=== PATIENT | female | born 1985 | race Caucasian/White ===

== ENCOUNTER 2016-12-23 19:49 | Emergency (ER) | payer BC ==
--- NOTE | 2016-12-23 20:54 | UC ---
Respiratory Complaint HPI - HPI Summary HPI Summary: Scratchy throat, nasal congestion, now cough and painful resp/coughing since yesterday. Had temp yesterday of 100.8F. "Three people at work have had this illness and after 10 days they all wound up on a [id number]." Denies significant respiratory history or hospitalizations for breathing problems/infection. - History of Current Complaint Chief Complaint: UCRespiratory Stated Complaint: ACHES,ST,COUGH Time Seen by Provider: 12/23/16 20:30 Hx Obtained From: Patient Hx Last Menstrual Period: 12/16/16 ?: No Onset/Duration: Gradual Onset, Lasting Days Timing: Constant Severity Initially: Mild Severity Currently: Moderate Character: Cough: Productive Aggravating Factors: Exertion Alleviating Factors: Upright Position Associated Signs And Symptoms: Positive: Fever, Pleuritic Chest Pain, URI, Nasal Congestion, Sinus Discomfort. 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 AGE 18- CRYO SURGERY- CERVIX- OFFICE - Family History Known Family History: Negative: Respiratory Disease - Social History Occupation: Employed Full-time Alcohol Use: Weekly Substance Use Type: None Smoking Status (MU): Light Every Day Tobacco Smoker Amount Used/How Often: 1/2 PPD X 15 YEARS Have You Smoked in the Last Year: Yes Review of Systems Constitutional: Fever Skin: Negative Eyes: Negative ENT: Sore Throat, Nasal Discharge Respiratory: Cough Cardiovascular: Negative Gastrointestinal: Negative Genitourinary: Negative Motor: Negative Neurovascular: Negative Musculoskeletal: Negative Neurological: Negative Psychological: Negative All Other Systems Reviewed And Are Negative: Yes Physical Exam Triage Information Reviewed: Yes Appearance: Well-Nourished, Pain Distress - mild Vital Signs: Initial Vital Signs Temp 99.2 F 12/23/16 20:02 Pulse 134 12/23/16 20:02 Resp 18 12/23/16 20:02 Pulse Ox 99 12/23/16 20:02 Vital Signs Reviewed: Yes Eye Exam: Normal Eyes: Positive: Conjunctiva Clear ENT: Positive: Hearing grossly normal, Pharynx normal, Nasal congestion, Nasal drainage, TMs normal. Negative: Tonsillar swelling, Tonsillar exudate Dental Exam: Normal Neck exam: Normal Neck: Positive: Supple, Nontender, No Lymphadenopathy Respiratory Exam: Other - occ harsh cough Respiratory: Positive: Lungs clear, No respiratory distress, No accessory muscle use Cardiovascular: Positive: No Murmur, Tachycardia Musculoskeletal Exam: Normal Neurological Exam: Normal Neurological: Positive: Alert Psychological Exam: Normal Skin Exam: Normal UC Diagnostic Evaluation - Laboratory O2 Sat by Pulse Oximetry: 99 Respiratory Course/Dx - Course Course Of Treatment: Pt is desiring an antibiotic because of exposure to coworkers, also feeling she is unable to be this sick for a long period of time and would like a quick resolution. Discussed the very high likelihood of this being viral, explained that her symptoms are quite typical for viral infections and that an antibiotic is more likely to hurt her than help her at this point. Encouraged her to return if new fever, trouble breathing, or sudden worsening. Provided work note. - Differential Dx/Diagnosis Provider Diagnoses: Upper respiratory infection, likely viral Discharge - Discharge Plan Condition: Stable Disposition: HOME Prescriptions: Albuterol HFA INHALER* [Ventolin HFA Inhaler*] 1 - 2 puff INH Q4H PRN #1 mdi PRN Reason: wheeze, cough Patient Education Materials: Upper Respiratory Infection (ED) Forms: *Work Release Referrals: No Primary Care Phys,NOPCP [Primary Care Provider] - Additional Instructions: We used to think antibiotics were necessary to treat bronchitis, but studies have shown that respiratory viruses cause the disease in the vast majority of cases. Like head colds, most cases of bronchitis get better without antibiotics. We may prescribe antibiotics if we believe bacteria are damaging your airways, or if there's high risk the bronchitis will worsen into pneumonia (such as for individuals with emphysema or other lung disease). Increase your fluid intake. A cool mist humidifier may make your lungs more comfortable. An expectorant (cough medicine that loosens phlegm) can help. Recovery from bronchitis can be somewhat slow, but you should not have any significant worsening or new fevers. As long as you can breathe easily and you continue to have steady improvement, it is not important how many days it takes you to get better. Call or return if you develop increasing fever, shortness of breath, chest pain , bloody sputum, or otherwise worsen. If you have not improved at all after several days, contact your primary care physician or return here.
== END 2016-12-23 20:54 | disposition home or self-care (01) ==
LOC: UCEAST 19:49
DX: J06.9 Acute upper respiratory infection, unspecified (principal); I10 Essential (primary) hypertension; F41.9 Anxiety disorder, unspecified
CPT/HCPCS: 99212; G0463

== ENCOUNTER 2017-10-25 18:33 | Emergency (ER) | payer SELFPAY ==
[2017-10-25] MEDS ORDERED: Methocarbamol TAB* 500 MG PO ONE (19:35)
[2017-10-25] MEDS ORDERED: Dexamethasone TAB* 4 MG PO ONE (19:36)
[2017-10-25] MEDS ORDERED: Dexamethasone IV* 4 MG/ML 1 ML (4 MG) IV SLOW PU ONE (19:45)
[2017-10-25 20:10] LABS: ABS Basophils 0.1 10^3/ul (0-0.2); ABS Eosinophils 0.4 10^3/ul (0-0.6); ABS Lymphocytes 3.4 10^3/ul (1.0-4.8); ABS Monocytes 0.8 10^3/ul (0-0.8); ABS Neutrophils 4.8 10^3/ul (1.5-7.7); ABS Nucleated RBC 0 10^3/ul; Hematocrit 43 % (35-47); Hemoglobin 14.3 g/dl (12.0-16.0); Lymphocyte % 35.5 % (25-47); Mean Corpuscular HGB Conc 34 g/dl (31-36); Mean Corpuscular Hemoglobin 28 pg (27-31); Mean Corpuscular Volume 83 fL (80-97); Mean Platelet Volume 6.7 um3 (7.4-10.4); Nucleated Red Blood Cells % 0.2; Platelet Count 384 10^3/ul (150-450); Red Blood Count 5.13 10^6/ul (4.0-5.4); Red Cell Distribution Width 13 % (10.5-15); White Blood Count 9.4 10^3/ul (3.5-10.8)
--- NOTE | 2017-10-25 20:55 | ED ---
Neck Pain - HPI Summary HPI Summary: 32-year-old female presents with neck pain for the past 2 weeks. 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 She states she did not have any pain after that. States since then she's been having left-sided neck pain that radiates to her head. She has a headache from the pain although does not have a history of headaches. She denies any numbness or tingling. She denies any change in vision or photophobia. She states everyday the pain gets worse. She has been taking ibuprofen initially and ibuprofen was working but it is not working anymoew. She has been using ice and heat with no improvement. She states the pain is sharp and almost tear like. She denies any change in vision. She denies any weakness. She denies any family history of aneurysms. She has no medical conditions. 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 AGE 18- CRYO SURGERY- CERVIX- OFFICE Hx Anesthesia Reactions: Yes - N/V Infectious Disease History: No Infectious Disease History: Denies: Hx Hepatitis, Hx Human Immunodeficiency Virus (HIV), Traveled Outside the [place] in Last 30 Days - Family History Known Family History: Negative: Respiratory Disease - Social History Alcohol Use: Occasionally Substance Use Type: Reports: None Smoking Status (MU): Light Every Day Tobacco Smoker Amount Used/How Often: 1/2 PPD X 15 YEARS Have You Smoked in the Last Year: Yes Review of Systems Negative: Fever Negative: Chest Pain Negative: Shortness Of Breath Positive: Myalgia - neck pain Positive: Headache All Other Systems Reviewed And Are Negative: Yes Physical Exam Triage Information Reviewed: Yes Vital Signs On Initial Exam: Initial Vitals Temp Pulse Resp BP Pulse Ox 98.3 F 112 19 172/112 99 10/25/17 18:46 10/25/17 18:46 10/25/17 18:46 10/25/17 18:46 10/25/17 18:46 Vital Signs Reviewed: Yes Appearance: Positive: Well-Appearing Skin: Positive: Warm, Dry Head/Face: Positive: Normal Head/Face Inspection Eyes: Positive: Normal, EOMI, QUYEN, Conjunctiva Clear ENT: Positive: Normal ENT inspection, Pharynx normal, TMs normal Respiratory/Lung Sounds: Positive: Clear to Auscultation, Breath Sounds Present Cardiovascular: Positive: Normal, RRR Musculoskeletal: Positive: Limited @ - neck due to pain, Other - tenderness left side of neck behind left ear Neurological: Positive: Alert, Oriented to Person Place, Time, CN Intact II-III , Reflexes Intact - biceps Psychiatric: Positive: Normal Diagnostics - Vital Signs Vital Signs Temp Pulse Resp BP Pulse Ox 10/25/17 18:46 98.3 F 112 19 172/112 99 - Laboratory Lab Results: Lab Results 10/25/17 10/25/17 Range/Units 19:55 19:55 WBC 9.4 (3.5-10.8) 10^3/ul RBC 5.13 (4.0-5.4) 10^6/ul Hgb 14.3 (12.0-16.0) g/dl Hct 43 (35-47) % MCV 83 (80-97) fL MCH 28 (27-31) pg MCHC 34 (31-36) g/dl RDW 13 (10.5-15) % Plt Count 384 (150-450) 10^3/ul MPV 6.7 L (7.4-10.4) um3 Neut % (Auto) 50.7 (38-83) % Lymph % (Auto) 35.5 (25-47) % Gregory % (Auto) 8.7 H (0-7) % Eos % (Auto) 4.0 (0-6) % Baso % (Auto) 1.1 (0-2) % Absolute Neuts (auto) 4.8 (1.5-7.7) 10^3/ul Absolute Lymphs (auto) 3.4 (1.0-4.8) 10^3/ul Absolute Monos (auto) 0.8 (0-0.8) 10^3/ul Absolute Eos (auto) 0.4 (0-0.6) 10^3/ul Absolute Basos (auto) 0.1 (0-0.2) 10^3/ul Absolute Nucleated RBC 0 10^3/ul Nucleated RBC % 0.2 Sodium 138 (133-145) mmol/L Potassium 3.6 (3.5-5.0) mmol/L Chloride 103 (101-111) mmol/L Carbon Dioxide 27 (22-32) mmol/L Anion Gap 8 (2-11) mmol/L BUN 11 (6-24) mg/dL Creatinine 0.86 (0.51-0.95) mg/dL Est GFR ( Amer) 97.7 (>60) Est GFR (Non-Af Amer) 76.0 (>60) BUN/Creatinine Ratio 12.8 (8-20) Glucose 73 (70-100) mg/dL Calcium 9.5 (8.6-10.3) mg/dL Total Bilirubin 0.30 (0.2-1.0) mg/dL AST 27 (13-39) U/L ALT 34 (7-52) U/L Alkaline Phosphatase 63 (34-104) U/L Total Protein 7.5 (6.4-8.9) g/dL Albumin 4.2 (3.2-5.2) g/dL Globulin 3.3 (2-4) g/dL Albumin/Globulin Ratio 1.3 (1-3) Result Diagrams: 10/25/17 19:55 10/25/17 19:55 Lab Statement: Any lab studies that have been ordered have been reviewed, and results considered in the medical decision making process. - Radiology neck Radiology Interpretation Completed By: Radiologist - CT cta CT Interpretation: No Acute Changes CT Interpretation Completed By: Radiologist Neck Course/Dx - Course Course Of Treatment: 32-year-old female presents with neck pain for the past 2 weeks. 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 She states she did not have any pain after that. States since then she's been having left-sided neck pain that radiates to her head. She has a headache from the pain although does not have a history of headaches. She denies any numbness or tingling. She denies any change in vision or photophobia. She states everyday the pain gets worse. She has been taking ibuprofen initially and ibuprofen was working but it is not working anymoew. She has been using ice and heat with no improvement. She states the pain is sharp and almost tear like. She denies any change in vision. She denies any weakness. She denies any family history of aneurysms. She has no medical conditions. on exam tenderness left side of neck. no midline tenderness. neurovascular intact. will description and it getting worst will get CTA. CTA and neck xray normal. will prescribe muscle relaxer and steriod and have follow up with primary. will have follow up with primary about blood pressure. patient understand and agrees with plan. - Diagnoses Differential Dx/HQI/PQRI: Positive: Cervical Fracture, Sprain, Strain, Vertebral Artery Aneurysm Provider Diagnoses: Neck pain, Headache, Elevated blood pressure reading Discharge - Sign-Out/Discharge Documenting (check all that apply): Discharge - Discharge Plan Condition: Good Disposition: HOME Prescriptions: Methocarbamol TAB* [Robaxin 500 MG TAB*] 500 mg PO TID PRN #30 tab PRN Reason: Pain methylPREDNISolone [Medrol Dosepak 4 MG*] 4 mg PO .SEE ALE INSTRUCTION #1 packet Patient Education Materials: Methocarbamol (By mouth), Neck Pain (ED) Referrals: [facility] [place] [facility]ERR[facility] [Outside] Additional Instructions: Follow directions on package for Medrol pack Take muscle relaxers up to two tablets three times a day Use ibuprofen or Tylenol for pain every 6 hours ice/heat area, move as much as possible Follow up with primary within 5 days Return to ED if develop any new or worsening symptoms - Billing Disposition and Condition Condition: GOOD Disposition: HOME
[2017-10-25] MEDS ORDERED: Iohexol 350* (CONTRAST) 500 ML MDV IV ONE (20:59)
[2017-10-25] MEDS ORDERED: Lidocaine PATCH 5%* 1 PATCH TRANSDERM SCH (21:00)
--- NOTE | 2017-10-25 21:08 | RAD ---
Indication: LEFT side neck pain. Comparison: No relevant prior exams available on the [facility] [place] PACS for comparison. Technique: AP, open-mouth odontoid, and lateral views cervical spine. Report: Straightening relative to normal cervical lordosis without facet subluxation at any level. Negative for fracture. Preserved disc spaces. Unremarkable prevertebral soft tissue contours. IMPRESSION: Aside from straightening relative to normal cervical lordosis which may be positional the examination is normal.
--- NOTE | 2017-10-25 21:36 | RAD ---
INDICATION: LEFT side headache. Neck pain. Injury one week ago. COMPARISON: Cervical spine radiographs of the same date. TECHNIQUE: Prior to administration of IV contrast a routine noncontrast head CT was performed. Multidetector CT images were obtained from the aortic arch to the vertex of the head with 80 mL Omnipaque 350 IV contrast. Arterial phase of enhancement. Multiplanar reformation including maximum intensity projection. 3-D arterial volume rendering. Stenosis estimations based on denominator of distal arterial diameter. HEAD CT REPORT: The sulci, ventricles, and basal cisterns are normal for age. Melendez matter white matter differentiation is preserved without evidence for edema. No intra or extra axial hemorrhage, mass, or fluid collection detected. Unremarkable visualized orbital contents. Unremarkable calvarium and skull base. Unremarkable scalp. The visualized paranasal sinuses and mastoid air spaces are clear. IMPRESSION: Negative unenhanced head CT. NECK ANGIOGRAM REPORT: Artifact from contrast within the LEFT subclavian and brachiocephalic veins markedly limits assessment of the ostium of the branch vessels from the aortic arch and RIGHT brachiocephalic and proximal common carotid as well as the proximal subclavian and proximal vertebral arteries. No atherosclerotic plaque, occlusion, stenosis, or dissection of the carotid or vertebral arteries evident. NECK ANGIOGRAM IMPRESSION: Negative CT angiogram of the neck. HEAD ANGIOGRAM REPORT: Unremarkable patent intracranial internal carotid arteries as well as the M1 and M2 segments of the middle cerebral arteries and A1 and A2 segments of the anterior cerebral arteries. No definitive anterior communicating artery visualized. Unremarkable patent basilar artery and cerebellar artery origins. Patent posterior cerebral arteries are supplied primarily by the posterior circulation with normal variant hypoplastic posterior communicating arteries. No intracranial aneurysm or vascular malformation evident. Normal opacification of the dural venous sinuses. HEAD ANGIOGRAM IMPRESSION: Negative CT angiogram of the head. CPT II: CPT II Codes: 3100F
[2017-10-25] MEDS: Methocarbamol TAB* 500 MG PO ONE ×2 (22:13→22:14)
[2017-10-25 22:26] VITALS: BP 156/106
== END 2017-10-25 22:24 | disposition home or self-care (01) ==
LOC: ED 18:33
DX: M54.2 Cervicalgia (principal); R51 Headache; I10 Essential (primary) hypertension; F17.210 Nicotine dependence, cigarettes, uncomplicated
CPT/HCPCS: 36415; 70496; 70498; 72040; 80053; 85025; 96374; 99282; A9270-GY; J1100; Q9967

== ENCOUNTER 2017-10-29 11:29 | Emergency (ER) | payer OTHER ==
[2017-10-29 11:53] VITALS: BP 148/96
--- NOTE | 2017-10-29 12:18 | UC ---
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 Patient reports straining her neck during the restraint she sought emergency department care on 10/25/17 to continued pain and decreased range of motion in her neck she was discharged with Robaxin and Medrol Dosepak diagnosis cervical strain. Patient states symptoms have resolved she is just here following up as recommended by the emergency department. Patient is able to demonstrate full range of motion and no bony tenderness in her cervical spine - History of Current Complaint Hx Obtained From: Patient Hx Last Menstrual Period: 10/20/17 ?: No Timing: Constant Onset/Duration: Sudden Onset Severity: Mild Pain Intensity: 2 Pain Scale Used: 0-10 Numeric Location: Discrete At: Character: Stiff - resolved Aggravating Factors: Nothing Alleviating Factors: Nothing Associated Signs & Symptoms: Positive: Negative Related History: Occupational Injury <Maria Elena Akers - Last Filed: 10/29/17 13:33> <Candi Harmon - Last Filed: 10/30/17 20:53> - History of Current Complaint Chief Complaint: UCBackPain Stated Complaint: RECHECK NECK INJURY Time Seen by Provider: 10/29/17 12:12 - Allergies/Home Medications Allergies/Adverse Reactions: Allergies Allergy/AdvReac Type Severity Reaction Status Date / Time No Known Allergies Allergy Verified 10/29/17 11:53 PMH/Surg Hx/FS Hx/Imm Hx Previously Healthy: Yes Other History Of: Negative For: Anticoagulant Therapy - Surgical History Surgical History: None Surgery Procedure, Year, and Place: AGE 11- LAPAROSCOPIC ABDOMINAL SURGERY- FOR RUPTURED OVARIAN CYST- APPENDECTOMY. AGE 18- CRYO SURGERY- CERVIX- OFFICE; T& A 2014 - Family History Known Family History: Negative: Respiratory Disease - Social History Occupation: Employed Full-time Lives: With Family Alcohol Use: Occasionally Substance Use Type: None Smoking Status (MU): Heavy Every Day Tobacco Smoker Amount Used/How Often: 1ppd Have You Smoked in the Last Year: Yes Cessation Counseling: Patient Advised to Stop <Maria Elena Akers - Last Filed: 10/29/17 13:33> Review Of Systems Constitutional: Positive: Negative Skin: Positive: Negative Eyes: Positive: Negative ENT: Positive: Negative Respiratory: Positive: Negative Cardiovascular: Positive: Negative Gastrointestinal: Positive: Negative Genitourinary: Positive: Negative Musculoskeletal: Positive: Negative, Myalgia - minimal discomfort to palpation left side of neck near base of skull Neurological: Positive: Negative Psychological: Positive: Negative All Other Systems Reviewed And Are Negative: Yes <Maria Elena Akers - Last Filed: 10/29/17 13:33> Physical Exam Triage Information Reviewed: Yes Appearance: Well-Appearing, No Pain Distress, Well-Nourished Vital Signs: Initial Vital Signs Temp 98.5 F 10/29/17 11:48 Pulse 103 10/29/17 11:48 Resp 16 10/29/17 11:48 BP 148/96 10/29/17 11:48 Pulse Ox 98 10/29/17 11:48 Vital Signs Reviewed: Yes Eye Exam: Normal Eyes: Positive: Conjunctiva Clear ENT Exam: Normal ENT: Positive: Normal ENT inspection, Hearing grossly normal, Pharynx normal, TMs normal, Uvula midline. Negative: Trismus, Muffled voice, Hoarse voice, Dental tenderness, Sinus tenderness Dental Exam: Normal Neck exam: Normal Neck: Positive: Supple, No Lymphadenopathy, Tenderness @ - point tenderness as described Respiratory Exam: Normal Respiratory: Positive: Chest non-tender, Lungs clear, Normal breath sounds, No respiratory distress, No accessory muscle use Cardiovascular Exam: Normal Cardiovascular: Positive: RRR, No Murmur, Pulses Normal, Brisk Capillary Refill Musculoskeletal Exam: Normal Musculoskeletal: Positive: Strength Intact, ROM Intact, No Edema Neurological Exam: Normal Neurological: Positive: Alert, Muscle Tone Normal Psychological Exam: Normal Skin Exam: Normal <Maria Elena Akers - Last Filed: 10/29/17 13:33> Vital Signs: Initial Vital Signs Temp 98.5 F 10/29/17 11:48 Pulse 103 10/29/17 11:48 Resp 16 10/29/17 11:48 BP 148/96 10/29/17 11:48 Pulse Ox 98 10/29/17 11:48 <Candi Harmon - Last Filed: 10/30/17 20:53> Neck Pain Course/Dx - Course Course Of Treatment: Continue Medrol Dosepak as prescribed continue Robaxin when necessary physical therapy referral provided for patient should pain continue as well as follow-up for primary care. Patient feels she may recheck return to work I agree patient may return to work - Differential Dx/Diagnosis Provider Diagnoses: Resolving cervical muscle strain, nicotine dependence, elevated blood pressure without diagnosis of hypertension <Maria Elena Akers - Last Filed: 10/29/17 13:33> Discharge - Sign-Out/Discharge Documenting (check all that apply): Discharge - Billing Disposition and Condition Condition: STABLE Disposition: HOME <Maria Elena Akers - Last Filed: 10/29/17 13:33> - Billing Disposition and Condition Condition: STABLE Disposition: HOME <Candi Harmon - Last Filed: 10/30/17 20:53> - Discharge Plan Condition: Stable Disposition: HOME Patient Education Materials: Cervical Strain (ED), Acute Neck Pain (ED) Referrals: [facility] [place] [facility] [Outside] No Primary Care Phys,NOPCP [Primary Care Provider] - Additional Instructions: Finished Medrol Dosepak continued to use Robaxin when necessary. If pain worsens in any way or fail to completely resolve 100%, follow up with [facility], [facility] as they do except Workmen's Comp. There is also a physical therapy referral included if you need that for neck pain Attestation Statement User Type: Provider - I was available for consult. This patient was seen by the MARINA. The patient was not presented to, seen by, or examined by me. Jonoj <Candi Harmon - Last Filed: 10/30/17 20:53>
== END 2017-10-29 13:00 | disposition home or self-care (01) ==
LOC: UCEAST 11:29
DX: S16.1XXD Strain of muscle, fascia and tendon at neck level, subsequent encounter (principal); X58.XXXD Exposure to other specified factors, subsequent encounter; R03.0 Elevated blood-pressure reading, without diagnosis of hypertension; F17.210 Nicotine dependence, cigarettes, uncomplicated
CPT/HCPCS: 99211; G0463

== ENCOUNTER 2017-10-29 11:38 | Emergency (ER) | payer BC ==
[2017-10-29 11:56] VITALS: BP 148/96
--- NOTE | 2017-10-29 12:25 | UC ---
Throat Pain/Nasal Ivan HPI - HPI Summary HPI Summary: Patient has scratchy dry throat that began on 10/28 patient is concerned because she has been exposed to strep - History of Current Complaint Hx Obtained From: Patient Hx Last Menstrual Period: 10/20/17 ?: No Onset/Duration: Gradual Onset, Lasting Days Severity: Mild Pain Intensity: 3 Pain Scale Used: 0-10 Numeric Cough: None Associated Signs & Symptoms: Positive: Negative <Maria Elena Akers - Last Filed: 11/01/17 17:34> <Candi Harmon - Last Filed: 11/02/17 08:29> - History of Current Complaint Chief Complaint: UCGeneralIllness Stated Complaint: SORE THROAT EAR PAIN Time Seen by Provider: 10/29/17 12:13 - Allergies/Home Medications Allergies/Adverse Reactions: Allergies Allergy/AdvReac Type Severity Reaction Status Date / Time No Known Allergies Allergy Verified 10/29/17 11:53 PMH/Surg Hx/FS Hx/Imm Hx Previously Healthy: Yes Other History Of: Negative For: Anticoagulant Therapy - Surgical History Surgical History: None Surgery Procedure, Year, and Place: AGE 11- LAPAROSCOPIC ABDOMINAL SURGERY- FOR RUPTURED OVARIAN CYST- APPENDECTOMY. AGE 18- CRYO SURGERY- CERVIX- OFFICE; T& A 2014 - Family History Known Family History: Positive: None Negative: Respiratory Disease - Social History Occupation: Employed Full-time Lives: With Family Alcohol Use: Occasionally Substance Use Type: None Smoking Status (MU): Heavy Every Day Tobacco Smoker Amount Used/How Often: 1ppd Have You Smoked in the Last Year: Yes Cessation Counseling: Counseled 3+Min - 10 Min <Maria Elena Akers - Last Filed: 11/01/17 17:34> Review of Systems Constitutional: Negative Skin: Negative Eyes: Negative ENT: Sore Throat, Ear Ache Respiratory: Negative Cardiovascular: Negative Gastrointestinal: Negative Genitourinary: Negative Motor: Negative Neurovascular: Negative Musculoskeletal: Negative Neurological: Negative Psychological: Negative Is Patient Immunocompromised?: No All Other Systems Reviewed And Are Negative: Yes <Maria Elena Akers - Last Filed: 11/01/17 17:34> Physical Exam Triage Information Reviewed: Yes Appearance: Well-Appearing, No Pain Distress, Well-Nourished Vital Signs: Initial Vital Signs Temp 98.4 F 10/29/17 11:53 Pulse 103 10/29/17 11:53 Resp 16 10/29/17 11:53 BP 148/96 10/29/17 11:53 Pulse Ox 98 10/29/17 11:53 Vital Signs Reviewed: Yes Eye Exam: Normal Eyes: Positive: Conjunctiva Clear ENT Exam: Normal ENT: Positive: Normal ENT inspection, Hearing grossly normal, Pharynx normal, TMs normal, Uvula midline. Negative: Nasal congestion, Nasal drainage, Trismus , Muffled voice, Hoarse voice, Dental tenderness, Sinus tenderness Dental Exam: Normal Neck exam: Normal Neck: Positive: Supple, Nontender, No Lymphadenopathy Respiratory Exam: Normal Respiratory: Positive: Chest non-tender, Lungs clear, Normal breath sounds, No respiratory distress, No accessory muscle use Cardiovascular Exam: Normal Cardiovascular: Positive: RRR, No Murmur, Pulses Normal, Brisk Capillary Refill Musculoskeletal Exam: Normal Musculoskeletal: Positive: Strength Intact, ROM Intact, No Edema Neurological Exam: Normal Neurological: Positive: Alert, Muscle Tone Normal Psychological Exam: Normal Skin Exam: Normal <Maria Elena Akers - Last Filed: 11/01/17 17:34> Vital Signs: Initial Vital Signs Temp 98.4 F 10/29/17 11:53 Pulse 103 10/29/17 11:53 Resp 16 10/29/17 11:53 BP 148/96 10/29/17 11:53 Pulse Ox 98 10/29/17 11:53 <Candi Harmon - Last Filed: 11/02/17 08:29> Diagnostics - Laboratory Diagnostic Studies Completed/Ordered: Rapid strep test is negative <Maria Elena Akers - Last Filed: 11/01/17 17:34> Throat Pain/Nasal Course/Dx - Course Assessment/Plan: Increase fluids Tylenol ibuprofen for pain throat lozenges and sprays for discomfort as well follow with PCP when necessary. Smoking cessation information provided. Follow-up for elevated blood pressure provided as well - Differential Dx/Diagnosis Provider Diagnoses: Viral pharyngitis, nicotine dependence, elevated blood pressure without diagnosis of hypertension <Maria Elena Akers - Last Filed: 11/01/17 17:34> Discharge - Sign-Out/Discharge Documenting (check all that apply): Discharge - Billing Disposition and Condition Condition: STABLE Disposition: HOME <Maria Elena Akers - Last Filed: 11/01/17 17:34> - Billing Disposition and Condition Condition: STABLE Disposition: HOME <Candi Harmon - Last Filed: 11/02/17 08:29> - Discharge Plan Condition: Stable Disposition: HOME Patient Education Materials: Phenol (By mouth), Pharyngitis (ED), Viral Syndrome (ED), Hypertension (ED) [place]errals: [facility] [place] [place]Outside] - 1 Week Attestation Statement User Type: Provider - I was available for consult. This patient was seen by the MARINA. The patient was not presented to, seen by, or examined by me. -Kg <Candi Harmon - Last Filed: 11/02/17 08:29>
== END 2017-10-29 13:06 | disposition home or self-care (01) ==
LOC: UCEAST 11:38
DX: J20.8 Acute bronchitis due to other specified organisms (principal); R03.0 Elevated blood-pressure reading, without diagnosis of hypertension; Z71.6 Tobacco abuse counseling; F17.210 Nicotine dependence, cigarettes, uncomplicated
CPT/HCPCS: 87651; 99211; G0463

== ENCOUNTER 2018-03-22 12:40 | Emergency (ER) | payer BC, OTHER ==
[2018-03-22 12:51] VITALS: BP 163/114
--- NOTE | 2018-03-22 13:36 | UC ---
Throat Pain/Nasal Ivan HPI - HPI Summary HPI Summary: This is scribe [facility] documenting for attending Abhilash Collins MD. Pt is a 32 y/o F c/o sore throat and productive cough lasting for ~2 days. Pain is described as acute and rated a 5/10, per assessment. Assoc. Sx: Sinus congestion, sore throat, productive cough. Denies: fever, chills, nausea, vomiting. PMHx: White coat syndrome. I, Dr. Collins, personally performed the services described in this documentation as scribed in my presence and it is both accurate and complete. - History of Current Complaint Chief Complaint: UCRespiratory Stated Complaint: COUGH,CONGESTED Time Seen by Provider: 03/22/18 12:58 Hx Obtained From: Patient Hx Last Menstrual Period: one week ago Onset/Duration: Sudden Onset, Lasting Days, Still Present Severity: Moderate Pain Intensity: 5 Pain Scale Used: 0-10 Numeric Cough: Productive Associated Signs & Symptoms: Positive: Other - POS: Sinus congestion, sore throat. NEG: chills, vomiting.. Negative: Fever, Vomiting - Allergies/Home Medications Allergies/Adverse Reactions: Allergies Allergy/AdvReac Type Severity Reaction Status Date / Time No Known Allergies Allergy Verified 03/22/18 12:51 Home Medications: Home Medications Norgestimate-Ethinyl Estradiol [Tri-Sprintec Tablet] 1 tab PO DAILY 03/22/18 [ History Confirmed 03/22/18] PMH/Surg Hx/FS Hx/Imm Hx Endocrine History: Other Other Endocrine History: NEG: DM Cardiovascular History: Hypertension, Other Other Cardiovascular History: NEG: CAD Other History Of: Negative For: Anticoagulant Therapy - Surgical History Surgical History: None Surgery Procedure, Year, and Place: AGE 11- LAPAROSCOPIC ABDOMINAL SURGERY- FOR RUPTURED OVARIAN CYST- APPENDECTOMY. AGE 18- [facility]YO SURGERY- CERVIX- OFFICE; T& A 2014 - Family History Known Family History: Positive: Cardiac Disease Negative: Hypertension, Diabetes, Respiratory Disease - Social History Occupation: Employed Full-time Lives: Dormitory/Roommates Alcohol Use: Occasionally Substance Use Type: None Smoking Status (MU): Heavy Every Day Tobacco Smoker Amount Used/How Often: 1ppd Have You Smoked in the Last Year: Yes Review of Systems Constitutional: Other - NEG: fever, chills. ENT: Sore Throat, Sinus Congestion Respiratory: Cough - Productive Gastrointestinal: Other - NEG: Nausea, vomiting All Other Systems Reviewed And Are Negative: Yes Physical Exam - Summary Physical Exam Summary: VITAL SIGNS: Reviewed. GENERAL: Patient is a well-developed and nourished female who is lying comfortable in the stretcher. Patient is not in any acute respiratory distress. HEAD AND FACE: Normocephalic EYES: PERRLA, EOMI x 2. EARS: Hearing grossly intact. MOUTH: Pharyngeal erythema. NECK: Supple, trachea is midline, no adenopathy, no JVD, no carotid bruit. CHEST: Symmetric, no tenderness at palpation LUNGS: Course sounds bilaterally. No wheezing or crackles. CVS: Regular rate and rhythm, S1 and S2 present, no murmurs or gallops appreciated. ABDOMEN: Soft, non-tender. Bowel sounds are normal. No abdominal abnormal pulsations. EXTREMITIES: Full ROM in all major joints, no edema, no cyanosis or clubbing. NEURO: Alert and oriented x 3. No acute neurological deficits. Speech is normal and follows Triage Information Reviewed: Yes Vital Signs: Initial Vital Signs Temp 98.3 F 03/22/18 12:49 Pulse 114 03/22/18 12:49 Resp 18 03/22/18 12:49 BP 163/114 03/22/18 12:49 Pulse Ox 99 03/22/18 12:49 Vital Signs Reviewed: Yes Throat Pain/Nasal Course/Dx - Course Assessment/Plan: Patient is a 32-year-old female who presents to the urgent care with a chief complaint of having productive cough, sore throat, nasal and chest congestion, fevers, lasting about 2 days. Patient declined a chest x-ray to rule out pneumonia. Rapid strep is negative for strep pharyngitis. Because of the above symptoms and believe that the patient may be dealing with bacterial bronchitis therefore the patient was placed in azithromycin. Patient also was given an albuterol pump to treat when she is wheezing. Patient will be discharged home with follow-up with primary care physician. Patient was instructed to follow up with the primary care physician in the next 2 or 3 days since the patient's blood pressure was found to have high. Patient is hemodynamically stable, alert and oriented 3 - Differential Dx/Diagnosis Provider Diagnoses: Bronchitis. Elevated blood pressure without diagnosis of hypertension Discharge - Sign-Out/Discharge Documenting (check all that apply): Patient Departure All imaging exams completed and their final reports reviewed: Yes - Discharge Plan Condition: Stable Disposition: HOME Prescriptions: Albuterol HFA INHALER* [Ventolin HFA Inhaler*] 1 puff INH Q4H PRN #1 mdi PRN Reason: Wheezing Azithromycin TAB* [Zithromax TAB (Z-ALE) 250 mg #6 tabs] 2 tab PO .TODAY, THEN 1 DAILY #1 ale Patient Education Materials: Acute Bronchitis (ED) Forms: *Work Release Referrals: [facility] – [place] [facility] [place] [Outside] - 3 Days Additional Instructions: Take medications as instructed and adhere to plan Take Acetaminophen or ibuprofen for pain or fever Increase your fluid intake Return to the or go to the emergency department if symptoms worsen Follow-up with primary care physician in next 2-3 days FOLLOW UP WITH YOUR PRIMARY CARE PROVIDER WITHIN ONE WEEK FOR HIGH BLOOD PRESSURE NOTED TODAY. - Billing Disposition and Condition Condition: STABLE Disposition: Home - Attestation Statements Document Initiated by Phuc: Yes Documenting Scribe: Aly Stern Provider For Whom Phuc is Documenting (Include Credential): Abhilash Collins MD. Scribe Attestation: Aly Quintero scribed for Abhilash Collins MD. on 03/24/18 at 0729. Scribe Documentation Reviewed: Yes Provider Attestation: The documentation as recorded by the Aly steve accurately reflects the service I personally performed and the decisions made by me, Abhilash Collins MD.
--- NOTE | 2018-03-23 07:40 | UC ---
Discharge - Sign-Out/Discharge Documenting (check all that apply): Post-Discharge Follow Up All imaging exams completed and their final reports reviewed: No Studies - Discharge Plan Condition: Stable Disposition: HOME Prescriptions: Albuterol HFA INHALER* [Ventolin HFA Inhaler*] 1 puff INH Q4H PRN #1 mdi PRN Reason: Wheezing Azithromycin TAB* [Zithromax TAB (Z-ALE) 250 mg #6 tabs] 2 tab PO .TODAY, THEN 1 DAILY #1 ale Patient Education Materials: Acute Bronchitis (ED) Forms: *Work Release Referrals: [facility] [place] [facility] [Outside] - 3 Days Additional Instructions: Take medications as instructed and adhere to plan Take Acetaminophen or ibuprofen for pain or fever Increase your fluid intake Return to the or go to the emergency department if symptoms worsen Follow-up with primary care physician in next 2-3 days FOLLOW UP WITH YOUR PRIMARY CARE PROVIDER WITHIN ONE WEEK FOR HIGH BLOOD PRESSURE NOTED TODAY. - Billing Disposition and Condition Condition: STABLE Disposition: Home
== END 2018-03-22 13:51 | disposition home or self-care (01) ==
LOC: UCEAST 12:40
DX: J40 Bronchitis, not specified as acute or chronic (principal); R03.0 Elevated blood-pressure reading, without diagnosis of hypertension; F17.210 Nicotine dependence, cigarettes, uncomplicated
CPT/HCPCS: 87651; 99212; G0463

== ENCOUNTER 2018-10-22 12:43 | Emergency (ER) | payer BC ==
[2018-10-22 12:54] VITALS: BP 159/107
--- NOTE | 2018-10-22 13:03 | ED ---
Throat Pain/Nasal Congestion - HPI Summary HPI Summary: 33-year-old female presents with cold-like symptoms for the past week. She states over the past couple days she's been having worsening sinus congestion. She states there is a lot of pressure. States pain is worse when she leans forward. She admits to headache. She admits to postnasal drip. She admits to fevers at night. No nausea or vomiting. she admits to occasional cough. She admits to sore throat with postnasal drip. Has no medical conditions. Has been using ibuprofen for the pain. - History of Current Complaint Chief Complaint: UCRespiratory Time Seen by Provider: 10/22/18 12:56 - Allergies/Home Medications Allergies/Adverse Reactions: Allergies Allergy/AdvReac Type Severity Reaction Status Date / Time No Known Allergies Allergy Verified 10/22/18 12:54 Home Medications: Home Medications Ibuprofen 800 mg PO ONCE PRN 10/22/18 [History Confirmed 10/22/18] PMH/Surg Hx/FS Hx/Imm Hx Endocrine/Hematology History: Denies: Hx Anticoagulant Therapy, Hx Diabetes, Hx Thyroid Disease Cardiovascular History: Reports: Hx Hypertension - WHITE COAT SYNDROME- NO MEDICATION FOR Respiratory History: Denies: Hx Asthma, Hx Chronic Obstructive Pulmonary Disease (COPD) History: Denies: Hx Renal Disease Sensory History: Denies: Hx Contacts or Glasses, Hx Hearing Aid Opthamlomology History: Denies: Hx Contacts or Glasses Neurological History: Denies: Hx Dementia, Hx Seizures, Other Neuro Impairments/Disorders Psychiatric History: Reports: Hx Anxiety - ABOUT UPCOMING SURGERY Denies: Hx Substance Abuse - Surgical History Surgery Procedure, Year, and Place: AGE 11- LAPAROSCOPIC ABDOMINAL SURGERY- FOR RUPTURED OVARIAN CYST- APPENDECTOMY. AGE 18- [facility]YO SURGERY- CERVIX- OFFICE; T& A 2014 Hx Anesthesia Reactions: Yes - N/V Infectious Disease History: No Infectious Disease History: Denies: Hx Hepatitis, Hx Human Immunodeficiency Virus (HIV), Traveled Outside the [place] in Last 30 Days - Family History Known Family History: Positive: None, Cardiac Disease Negative: Hypertension, Diabetes, Respiratory Disease - Social History Alcohol Use: Daily Substance Use Type: Reports: None Smoking Status (MU): Heavy Every Day Tobacco Smoker Amount Used/How Often: 1ppd Have You Smoked in the Last Year: Yes Review of Systems Positive: Fever Positive: Nasal Discharge Negative: Chest Pain Positive: Cough. Negative: Shortness Of Breath Positive: Headache All Other Systems Reviewed And Are Negative: Yes Physical Exam Triage Information Reviewed: Yes Vital Signs On Initial Exam: Initial Vitals Temp Pulse Resp BP Pulse Ox 98.4 F 118 20 159/107 100 10/22/18 12:50 10/22/18 12:50 10/22/18 12:50 10/22/18 12:50 10/22/18 12:50 Vital Signs Reviewed: Yes Appearance: Positive: Well-Appearing Skin: Positive: Warm, Dry Head/Face: Positive: Normal Head/Face Inspection Eyes: Positive: Normal, EOMI, QUYEN, Conjunctiva Clear ENT: Positive: Pharynx normal, Nasal congestion, TMs normal, Sinus tenderness Neck: Positive: Supple, Nontender, No Lymphadenopathy Respiratory/Lung Sounds: Positive: Clear to Auscultation, Breath Sounds Present Cardiovascular: Positive: Normal, RRR Abdomen Description: Positive: Nontender, Soft Bowel Sounds: Positive: Present Musculoskeletal: Positive: Normal Neurological: Positive: Normal Psychiatric: Positive: Normal Diagnostics - Vital Signs Vital Signs Temp Pulse Resp BP Pulse Ox 10/22/18 12:50 98.4 F 118 20 159/107 100 - Laboratory Lab Statement: Any lab studies that have been ordered have been reviewed, and results considered in the medical decision making process. EENT Course/Dx - Course Course Of Treatment: 33-year-old female presents with cold-like symptoms for the past week. She states over the past couple days she's been having worsening sinus congestion. She states there is a lot of pressure. States pain is worse when she leans forward. She admits to headache. She admits to postnasal drip. She admits to fevers at night. No nausea or vomiting. she admits to occasional cough. She admits to sore throat with postnasal drip. Has no medical conditions. Has been using ibuprofen for the pain. On exam has sinus tenderness tenderness. Nasal congestion noted. Pharynx normal. Lungs clear to auscultation. With length of symptoms will treat with Augmentin for sinus infection. will start on Flonase. Told to establish care with primary to follow-up as blood pressure is elevated at this visit. Patient understands agrees with plan. - Differential Diagnoses Differential Diagnoses: Pharyngitis, Sinusitis, URI/Bronchitis - Diagnoses Provider Diagnoses: Sinusitis Discharge - Sign-Out/Discharge Documenting (check all that apply): Patient Departure All imaging exams completed and their final reports reviewed: No Studies - Discharge Plan Condition: Good Disposition: HOME Prescriptions: Amoxicillin/Clavulanate TAB* [Augmentin TAB 875*] 875 mg PO BID #14 tab Fluconazole 150 MG TAB* [Diflucan 150 MG TAB*] 150 mg PO ONCE #1 tablet Fluticasone NASAL SPRAY 50MCG* [Flonase NASAL SPRAY 50MCG*] 2 spray BOTH NARES DAILY #1 btl Patient Education Materials: Sinusitis (ED) Referrals: [facility] [place] [facility] [place] [facility] [Outside] Additional Instructions: Use saline spray in nose as much as needed Use intranasal steroid one spray each nostril twice a day take augmentin twice a day for 7 days Take Tylenol or ibuprofen for headache every 6 hours establish care with primary Return to ED if develop any new or worsening symptoms - Billing Disposition and Condition Condition: GOOD Disposition: Home
== END 2018-10-22 13:15 | disposition home or self-care (01) ==
LOC: UCEAST 12:43
DX: J32.9 Chronic sinusitis, unspecified (principal); F17.210 Nicotine dependence, cigarettes, uncomplicated
CPT/HCPCS: 99212; G0463

== ENCOUNTER 2018-11-09 18:27 | Emergency (ER) | payer BC ==
[2018-11-09 18:41] VITALS: BP 164/103
--- NOTE | 2018-11-09 19:29 | UC ---
Bite Injury/Animal HPI - HPI Summary HPI Summary: 33-year-old female presents with a cat bite and scratches to her right forearm. States earlier today her neighbor's cat entered into her house, saw her cat on the couch, and began to go after her cat. She states that she grabbed the neighbor's cat to remove him from her house and when she did so the cat bit her right forearm and began scratching her. States she had some immediate swelling at the area of the bite and she has noticed some bruising as well. She thoroughly cleaned the wounds prior to arrival and apply an an antibiotic ointment. Bleeding was controlled prior to arrival. Tetanus status unknown. - History of Current Complaint Chief Complaint: UCBiteInjury Stated Complaint: CAT BITE AND SCRATCH Time Seen by Provider: 11/09/18 19:08 Hx Obtained From: Patient Hx Last Menstrual Period: 10/10/18 Pain Intensity: 2 - Allergies/Home Medications Allergies/Adverse Reactions: Allergies Allergy/AdvReac Type Severity Reaction Status Date / Time No Known Allergies Allergy Verified 11/09/18 18:41 PMH/Surg Hx/FS Hx/Imm Hx Previously Healthy: Yes - Denies significant PMH Other History Of: Negative For: Anticoagulant Therapy - Surgical History Surgical History: Yes Surgery Procedure, Year, and Place: AGE 11- LAPAROSCOPIC ABDOMINAL SURGERY- FOR RUPTURED OVARIAN CYST- APPENDECTOMY. AGE 18- CRYO SURGERY- CERVIX- OFFICE; T& A 2014 - Family History Known Family History: Positive: None, Cardiac Disease Negative: Hypertension, Diabetes, Respiratory Disease - Social History Occupation: Employed Full-time Lives: With Family Alcohol Use: Weekly Substance Use Type: None Smoking Status (MU): Light Every Day Tobacco Smoker Amount Used/How Often: 1ppd Have You Smoked in the Last Year: Yes - Immunization History Most Recent Tetanus Shot: unknown, no PCP at this time Review of Systems All Other Systems Reviewed And Are Negative: Yes Constitutional: Negative: Fever, Chills Skin: Positive: Other - See HPI Respiratory: Positive: Negative Cardiovascular: Positive: Negative Gastrointestinal: Positive: Negative Genitourinary: Positive: Negative Motor: Negative: Weakness Neurovascular: Negative: Decreased Sensation Musculoskeletal: Negative: Arthralgia, Decreased ROM Neurological: Positive: Negative Is Patient Immunocompromised?: No Physical Exam - Summary Physical Exam Summary: GENERAL APPEARANCE: Well developed, well nourished, alert and cooperative, and appears to be in no acute distress. CARDIAC: Normal S1 and S2. No S3, S4 or murmurs. Rhythm is regular. There is no peripheral edema, cyanosis or pallor. Extremities are warm and well perfused. Capillary refill is less than 2 seconds. Peripheral pulses intact. LUNGS: Clear to auscultation without rales, rhonchi, wheezing or diminished breath sounds. ABDOMEN: Positive bowel sounds. Soft, nondistended, nontender. No guarding or rebound. No masses or hepatosplenomegally. MUSKULOSKELETAL: ROM intact to all extremities. No joint erythema or tenderness. Normal muscular development. Normal gait. SKIN: Multiple superficial puncture wounds to the right radial forearm with mild edema and bruising. No erythema, drainage, or FB noted. Multiple superficial linear lacerations to the right anterior and posterior forearm without erythema, edema, or drainage. Triage Information Reviewed: Yes Vital Signs: Initial Vital Signs Temp 98.3 F 11/09/18 18:37 Pulse 97 11/09/18 18:37 Resp 16 11/09/18 18:37 BP 164/103 11/09/18 18:37 Pulse Ox 100 11/09/18 18:37 Vital Signs Reviewed: Yes Bite Injury Course/Dx - Course Course Of Treatment: 33-year-old female presents with a cat bite and scratches to her right forearm. States earlier today her neighbor's cat entered into her house, saw her cat on the couch, and began to go after her cat. She states that she grabbed the neighbor's cat to remove him from her house and when she did so the cat bit her right forearm and began scratching her. States she had some immediate swelling at the area of the bite and she has noticed some bruising as well. She thoroughly cleaned the wounds prior to arrival and apply an an antibiotic ointment. Bleeding was controlled prior to arrival. Tetanus status unknown. Afebrile. Vital signs stable. Exam is remarkable for multiple superficial puncture wounds to the right radial forearm with mild edema and bruising. No erythema, drainage, or FB noted. Multiple superficial linear lacerations to the right anterior and posterior forearm without erythema, edema, or drainage. The wounds did not require repair. Will place her on Augmentin 875 mg BID x 5 days for prophylactic treatment of infection. She reports history of vaginal yeast infection with antibiotic use and requested dose of diflucan which I did provide. Her tetanus was also updated. Anticipatory guidance and warning symptoms were reviewed with the patient. Verbalizes understanding and agrees with POC. - Differential Dx/Diagnosis Differential Diagnosis/HQI/PQRI: Puncture, Rabies Exposure Provider Diagnosis: Cat bite of right forearm, Cat scratch of right forearm Discharge - Sign-Out/Discharge Documenting (check all that apply): Patient Departure All imaging exams completed and their final reports reviewed: No Studies - Discharge Plan Condition: Stable Disposition: HOME Prescriptions: Amoxicillin/Clavulanate TAB* [Augmentin TAB 875*] 875 mg PO BID #10 tab Fluconazole 150 MG TAB* [Diflucan 150 MG TAB*] 150 mg PO ONCE #1 tablet Patient Education Materials: Animal Bite (ED) Referrals: No Primary Care Phys,NOPCP [Primary Care Provider] - Additional Instructions: Your injuries from the cat bite and scratches did not require any repair and did not appear to be infected however we will start you on an antibiotic to help prevent any infection. Start Augmentin 875 mg 1 tab twice daily for 5 days. Clean the wounds twice daily with a mild soap and water. Apply an antibiotic ointment and keep covered with a gauze dressing. Take acetaminophen (Tylenol) or ibuprofen (Advil, Motrin) according to directions as needed for pain. Seek immediate medical attention in the emergency room if you develop fever greater than 100.5 F, have increased pain, redness that spreads, increase swelling of the arm, pus draining from the wounds, or any worsening of symptoms. - Billing Disposition and Condition Condition: STABLE Disposition: Home
[2018-11-09] MEDS ORDERED: Tetan/Diph/Pertus SYR(Tdap)* 0.5 ML SYR(BOOSTRIX) use SYR IM ONE (19:49)
== END 2018-11-09 19:40 | disposition home or self-care (01) ==
LOC: UCEAST 18:27
DX: S51.851A Open bite of right forearm, initial encounter (principal); W55.01XA Bitten by cat, initial encounter; Y93.89 Activity, other specified; Y92.009 Unspecified place in unspecified non-institutional (private) residence as the place of occurrence of the external cause; S50.811A Abrasion of right forearm, initial encounter; W55.03XA Scratched by cat, initial encounter
CPT/HCPCS: 90715; 99212; G0463

== ENCOUNTER 2019-04-20 12:24 | Emergency (ER) | payer BC ==
--- OUTSIDE RECORDS SUMMARY | 2019-04-20 12:29 | XMS REPORT | Continuity of Care Document ---
:1985 External Reference #:[id number] Author Name Randy Osborne, OD Address [address] [place] [address] Care Team Providers Name Role Phone Liz CHOUDHARY, Maria Elena - Family Care Team Information Cord Splicer [phone] Problems Description No Information Available Social History Type Date Description Comments Sex Unknown ETOH Use Denies alcohol use Tobacco Use Start: Unknown Patient has never smoked Smoking Status Reviewed: 04/01/19 Patient has never smoked Allergies, Adverse Reactions, Alerts Description No Known Drug Allergies Medications Active Medications SIG Qnty Indications Ordering Provider Date Adult Gummy/Dha/Folic Acid Unknown 0.4-25mg Chewtabs History Medications No Active Medications Unknown 04/01/2019 - 04/01/2019 Immunizations Description No Information Available Vital Signs Date Vital Result Comment 10/09/2017 3:55pm Intraocular Pressure Right Eye 15 mmHg Intraocular Pressure Left Eye 15 mmHg 02/05/2017 11:38am Intraocular Pressure Right Eye 15 mmHg Intraocular Pressure Left Eye 15 mmHg Results Description No Information Available Procedures Date Code Description Status 04/01/2019 93908 Refraction Completed 04/01/2019 54981 Eye Exam Est Intermediate Completed Medical Devices Description No Information Available Encounters Description No Information Available Assessments Date Code Description Provider 04/01/2019 H04.123 Dry eye syndrome of bilateral lacrimal glands Randy Osborne, OD 04/01/2019 H52.13 Myopia, bilateral Randy Osborne, OD Plan of Treatment No Information Available Functional Status Description No Information Available Mental Status Description No Information Available Referrals Description No Information Available
[2019-04-20 12:36] VITALS: BP 151/93
--- NOTE | 2019-04-20 13:12 | UC ---
Ear Complaint HPI - HPI Summary HPI Summary: 34 year old female with no PMH, currently 20 weeks w c/o sinus pain/ pressure x 2 weeks, had associated URI symtpoms, those have resolved, now past 24 hours with severe L ear pain. no fever, chills. no prior infections. no complications with current . - History of Current Complaint Chief Complaint: UCEar Stated Complaint: EAR ACHE Time Seen by Provider: 04/20/19 12:50 Hx Obtained From: Patient Hx Last Menstrual Period: 10/10/18 ?: Yes - 20 weeks Onset/Duration: Gradual Onset, Lasting Days, Still Present, Worse Since - daily Severity Initially: Mild Severity Currently: Moderate Pain Intensity: 5 Pain Scale Used: 0-10 Numeric Alleviating Factors: OTC Meds Associated Signs/Symptoms: Negative: Discharge, Hearing Loss, Foreign Body Sensation, Trauma to Ear - Allergies/Home Medications Allergies/Adverse Reactions: Allergies Allergy/AdvReac Type Severity Reaction Status Date / Time No Known Allergies Allergy Verified 04/20/19 12:36 Home Medications: Home Medications Pnv No.95/Ferrous Fum/Folic AC [ Caplet] 1 tab PO DAILY 04/20/19 [ History Confirmed 04/20/19] PMH/Surg Hx/FS Hx/Imm Hx Previously Healthy: Yes Other History Of: Negative For: Anticoagulant Therapy - Surgical History Surgical History: Yes Surgery Procedure, Year, and Place: AGE 11- LAPAROSCOPIC ABDOMINAL SURGERY- FOR RUPTURED OVARIAN CYST- APPENDECTOMY. AGE 18- CRYO SURGERY- [facility]- OFFICE; T& A 2014 - Family History Known Family History: Positive: None, Cardiac Disease Negative: Hypertension, Diabetes, Respiratory Disease - Social History Alcohol Use: None Substance Use Type: None Smoking Status (MU): Former Smoker Amount Used/How Often: 1ppd Have You Smoked in the Last Year: Yes - Immunization History Most Recent Tetanus Shot: unknown, no PCP at this time Review of Systems All Other Systems Reviewed And Are Negative: Yes Constitutional: Negative: Fever, Chills, Fatigue ENT: Positive: Ear Ache Psychological: Positive: Negative Is Patient Immunocompromised?: No Physical Exam Triage Information Reviewed: Yes Appearance: No Pain Distress, Well-Nourished, Ill-Appearing - minimal Vital Signs: Initial Vital Signs Temp 98.8 F 04/20/19 12:34 Pulse 110 04/20/19 12:34 Resp 20 04/20/19 12:34 BP 151/93 04/20/19 12:34 Pulse Ox 100 04/20/19 12:34 Vital Signs Reviewed: Yes Eyes: Positive: Conjunctiva Clear ENT: Positive: Pharynx normal, TM bulging - Left side erythema, bulging, + fluid posterior to TM. Right WNLs., TM dull, TM red. Negative: Pharyngeal erythema, Tonsillar swelling, Tonsillar exudate, Sinus tenderness, Uvula midline Neck: Positive: Supple, Nontender, No Lymphadenopathy. Negative: Nuchal Rigidity, Enlarged Nodes @ Respiratory: Positive: Chest non-tender, Lungs clear, Normal breath sounds, No respiratory distress, No accessory muscle use. Negative: Crackles, Rhonchi, Stridor, Wheezing Cardiovascular: Positive: RRR Skin Exam: Normal Ear Complaint Course/Dx - Course Course Of Treatment: Ear Infection- - Antibiotics- 500mg amoxicllin three times a day for 5 days - Tylenol as needed for pain - Continue increased fluid intake to help flush out antibiotic - Follow up with primary physician within 2-3 days for repeat evaluation - Work note given as needed - Differential Dx/Diagnosis Differential Diagnosis/HQI/PQRI: Trauma, URI Provider Diagnosis: Ear infection Discharge ED - Sign-Out/Discharge Documenting (check all that apply): Patient Departure All imaging exams completed and their final reports reviewed: No Studies - Discharge Plan Condition: Good Disposition: HOME Prescriptions: Amoxicillin PO (*) [Amoxicillin 500 MG CAP*] 500 mg PO TID #15 cap Patient Education Materials: Ear Infection (ED) Forms: *Work Release Referrals: No Primary Care Phys,NOPCP [Primary Care Provider] - Care [facility] [Outside] Additional Instructions: Ear Infection- - Antibiotics- 500mg amoxicllin three times a day for 5 days - Tylenol as needed for pain - Continue increased fluid intake to help flush out antibiotic - Follow up with primary physician within 2-3 days for repeat evaluation - Work note given as needed - Billing Disposition and Condition Condition: GOOD Disposition: Home
== END 2019-04-20 13:18 | disposition home or self-care (01) ==
LOC: UCEAST 12:24
DX: O26.892 Other specified pregnancy related conditions, second trimester (principal); R51 Headache; H92.02 Otalgia, left ear; Z3A.20 20 weeks gestation of pregnancy; Z87.891 Personal history of nicotine dependence
CPT/HCPCS: 99212; G0463

== ENCOUNTER 2019-08-26 07:55 | Inpatient (IN) | payer BC ==
[2019-08-26] MEDS ORDERED: Buffered Lidocaine 1% SYRIN* 1 ML/SYRINGE INTRADERM ONE (08:41)
[2019-08-26] MEDS ORDERED: Lactated Ringers 1000 ML Bag* 1,000 ML IV ONE ×2 (08:41→23:34)
[2019-08-26] MEDS ORDERED: Penicillin G Potassium IV* 5,000,000 UNITS in NS 0.9% 100 ML* 100 ML IVPB ONE (09:00)
[2019-08-26] MEDS ORDERED: Oxytocin in LR* 20 UNITS/1,000 ML BAG IVPB SCH (09:00)
[2019-08-26] MEDS: Labetalol TAB* 200 MG PO SCH ×2 (09:34→21:01)
[2019-08-26 09:42] LABS: ABS Basophils 0.1 10^3/ul (0-0.2); ABS Eosinophils 0.4 10^3/ul (0-0.6); ABS Lymphocytes 2.2 10^3/ul (1.0-4.8); ABS Monocytes 1.5 10^3/ul (0-0.8); ABS Neutrophils 9.3 10^3/ul (1.5-7.7); Eosinophil % 2.9 %; Hematocrit 35 % (35-47); Hemoglobin 11.5 g/dL (12.0-16.0); Lymphocyte % 16.7 %; Mean Corpuscular HGB Conc 33 g/dL (31-36); Mean Corpuscular Hemoglobin 27 pg (27-31); Mean Corpuscular Volume 81 fL (80-97); Mean Platelet Volume 7.2 fL (7.4-10.4); Platelet Count 394 10^3/uL (150-450); Red Blood Count 4.29 10^6 /uL (3.70-4.87); Red Cell Distribution Width 14 % (10-15); White Blood Count 13.5 10^3/uL (3.5-10.8)
[2019-08-26 09:52] LABS: Activated Partial Thrombo Time 25.5 seconds (26.0-38.0); INR 0.85 (0.82-1.09)
[2019-08-26 10:00] LABS: Albumin 3.3 g/dL (3.2-5.2); Albumin/Globulin Ratio 1.1 (1-3); BUN/Creatinine Ratio 11.1 (8-20); Calcium 9.1 mg/dL (8.6-10.3); EGFR African American 130.1 (>60); EGFR Non-African American 107.5 (>60); Potassium 3.6 mmol/L (3.5-5.0); Total Bilirubin 0.2 mg/dL (0.2-1.0); Total Protein 6.3 g/dL (6.4-8.9); Uric Acid 4.6 mg/dL (2.3-6.6)
[2019-08-26 10:35] LABS: Urine Benzodiazepine Screen None Detected (None Detect); Urine Opiates Screen None Detected (None Detect)
[2019-08-26] MEDS: Calcium Carbonate CHEW TAB* 500 MG (TUMS) PO PRN ×2 (11:02→15:12)
--- NOTE | 2019-08-26 14:50 | HP ---
General Information - Reason for Visit Pt presents for IOL due to CHTN (dx early in ) requiring medication. No e/o pre-eclampsia. - General Information Maternal Age: 34 Grav: 2 Para: 0 SAB: 0 IEA: 1 Estimated Due Date: 09/15/19 Determined By: LMP Gestational Age in Weeks/Days: 37+1 Maternal Blood Type and Rh: O Positive - Results this Serology/RPR Result: Non-Reactive Rubella Result: Immune HBsAg Result: Negative HIV Result: Negative GBS Culture Result: Positive Past Medical History Delivery History: See Records Pertinent Past Medical History: See Records - anxiety Pertinent Past Surgical History: See Records - laparoscopy, tonsils - Antepartal Records Antepartal Records: Reviewed, Complicated by: - CHTN, AMA Review of Systems Constitutional: Comfortable CV Complaint: No Respiratory: Shortness of Breath: No Gastrointestinal: No Nausea/Vomiting Genitourinary: No Dysuria, No Bleeding, No Leaking Fluid Musculoskeletal: No Complaint Movement: Normal Exam Allergies/Adverse Reactions: Allergies No Known Allergies Allergy (Verified 04/20/19 12:36) Vital Signs 08/26/19 08/26/19 08/26/19 08:41 10:37 12:00 Temperature 97.1 F 97.8 F Pulse Rate 106 87 Respiratory 20 Rate Blood Pressure 155/92 141/87 144/87 (mmHg) O2 Sat by Pulse 99 Oximetry 08/26/19 14:00 Temperature Pulse Rate 87 Respiratory Rate Blood Pressure 138/89 (mmHg) O2 Sat by Pulse Oximetry Lab Values - Entire Visit: Laboratory Tests 08/26/19 08/26/19 08/26/19 09:00 09:00 09:00 WBC 13.5 H RBC 4.29 Hgb 11.5 L Hct 35 MCV 81 MCH 27 MCHC 33 RDW 14 Plt Count 394 MPV 7.2 L Neut % (Auto) 69.2 Lymph % (Auto) 16.7 [place] % (Auto) 10.8 Eos % (Auto) 2.9 Baso % (Auto) 0.4 Absolute Neuts (auto) 9.3 H Absolute Lymphs (auto) 2.2 Absolute Monos (auto) 1.5 H Absolute Eos (auto) 0.4 Absolute Basos (auto) 0.1 Absolute Nucleated RBC 0.0 Nucleated RBC % 0.0 INR (Anticoag Therapy) APTT Sodium 136 Potassium 3.6 Chloride 105 Carbon Dioxide 22 Anion Gap 9 BUN 7 Creatinine 0.63 Est GFR ( Amer) 130.1 Est GFR (Non-Af Amer) 107.5 BUN/Creatinine Ratio 11.1 Glucose 98 Uric Acid 4.6 Calcium 9.1 Total Bilirubin 0.20 AST 16 ALT 11 Alkaline Phosphatase 111 H Total Protein 6.3 L Albumin 3.3 Globulin 3.0 Albumin/Globulin Ratio 1.1 Urine Opiates Screen Ur Barbiturates Screen Ur Phencyclidine Scrn Ur Amphetamines Screen U Benzodiazepines Scrn Urine Cocaine Screen U Cannabinoids Screen Blood Type O Positive Antibody Screen Negative 08/26/19 08/26/19 09:00 09:40 WBC RBC Hgb Hct MCV MCH MCHC RDW Plt Count MPV Neut % (Auto) Lymph % (Auto) [place] % (Auto) Eos % (Auto) Baso % (Auto) Absolute Neuts (auto) Absolute Lymphs (auto) Absolute Monos (auto) Absolute Eos (auto) Absolute Basos (auto) Absolute Nucleated RBC Nucleated RBC % INR (Anticoag Therapy) 0.85 APTT 25.5 L Sodium Potassium Chloride Carbon Dioxide Anion Gap BUN Creatinine Est GFR ( Amer) Est GFR (Non-Af Amer) BUN/Creatinine Ratio Glucose Uric Acid Calcium Total Bilirubin AST ALT Alkaline Phosphatase Total Protein Albumin Globulin Albumin/Globulin Ratio Urine Opiates Screen None detected Ur Barbiturates Screen None detected Ur Phencyclidine Scrn None detected Ur Amphetamines Screen None detected U Benzodiazepines Scrn None detected Urine Cocaine Screen None detected U Cannabinoids Screen None detected Blood Type Antibody Screen - Measurements Height: 5 ft 5.5 in Weight: 241 lb Weight in lbs: 241.963974 Body Mass Index (BMI): 39.4 Pre- Weight: 197 lb Weight Gained This : 44 lbs and 0 ozs - Exam Breast: Breast Exam Deferred CVA: No CVA Tenderness Extremities: No Edema Heart: Normal Rhythm/Heart Sounds Lungs: Clear Bilaterally Rectal: Rectal Exam Deferred - Abdominal Exam Abdomen Exam: Non-Tender, Fundal Height Consistent with Dates - Ultrasound/Biophysical Profile Ultrasound Status: Not Done Targeted Exam Findings Estimated Weight: 7 lbs Cervical Exam: 2cm Effacement: 60% Station: -2 Presenting Part: Vertex Membrane Status: Intact Bleeding/Discharge: None EFM Findings - External Monitor Findings Baseline Heart Rate: 140 External Monitor Findings: Accelerations Present, No Pattern of Variable or Late Decelerations, Variability Moderate Contractions: Irregular Contraction Frequency: Q8 min Assessment/Plan - Assessment 37 wks with CHTN requiring twice daily labetalol here for induction of labor. Very reassuring status. Normal labs today. GBS positive. Plan to continue labetalol. Will start pitocin, and plan to AROM when 3-4 cm and more effaced. - Obstetrical Risk Factors Obstetrical Risk Factors: GBS Positive, Chronic Hypertension - Plan Plan: Induction - Date/Time of Admission Date of Admission: 08/26/19 Time of Admission: 08:30
[2019-08-26] MEDS: Penicillin G Potassium IV* 3,000,000 UNITS in NS 0.9% 100 ML* 100 ML IVPB SCH ×3 (15:12→23:24)
[2019-08-26] MEDS: Lactated Ringers 1000 ML Bag* 1,000 ML IV SCH ×2 (19:55→23:12)
[2019-08-26] MEDS ORDERED: OBEPIDURAL* 250 ML EPIDURAL ONE (22:27)
[2019-08-26] MEDS ORDERED: Phenylephrine 40 MCG/ML SYRINGE IV PUSH PRN ×2 (23:34)
[2019-08-26] MEDS ORDERED: Famotidine TAB* 20 MG PO PRN (23:34)
[2019-08-26] MEDS ORDERED: EPHEDrine (Pressors)* 50 MG/ML VIAL IV PUSH PRN ×2 (23:34)
[2019-08-26] MEDS ORDERED: Sodium Citrate/Citric Acid* 15 ML UDC PO PRN (23:34)
[2019-08-26] MEDS ORDERED: OBEPIDURAL* 250 ML EPIDURAL SCH (23:45)
[2019-08-26] MEDS ORDERED: Lactated Ringers 1000 ML Bag* 1,000 ML IV SCH (23:45)
[2019-08-27] MEDS: Penicillin G Potassium IV* 3,000,000 UNITS in NS 0.9% 100 ML* 100 ML IVPB SCH (03:30)
[2019-08-27] MEDS ORDERED: Witch Hazel PAD* JAR TOPICAL PRN (06:08)
[2019-08-27] MEDS ORDERED: Acetaminophen TAB* 325 MG PO PRN (06:08)
[2019-08-27] MEDS ORDERED: Dibucaine 1% 28.35 GM TUBE PR PRN (06:08)
[2019-08-27] MEDS ORDERED: Ibuprofen TAB* 600 MG PO PRN (06:08)
--- NOTE | 2019-08-27 06:17 | PROCNOTE ---
[facility] OB: Delivery Note - Nursery Level of Nursery: Regular/Bedside - Perineum Perineal Injury: Vaginal Laceration Perineal Repair: By Delivering Practioner - Events Delivery Events of Note: Pitocin During Labor, Full Course of Antibiotics - Risk for Falls Other Risk for Falls: GHTN vs PEC - Additional Delivery Notes Additional Delivery Notes: Induction started with pitocin, then AROM performed at about 3cm. Pt received epidural at 5cm and this worked well. Pt then had good progress to C/C and pushed for about 1.5 hrs. Head delivered in a controlled fashion. Shoulders and body followed easily. Cord doubly clamped and cut by father after about 3 min. IV pitocin increased. Intact placenta delivered spontaneously. 1% lidocaine injected. Small but deep posterior vaginal lac closed with 3-0 Vicryl rapide. Some adjacent skin at the introitus also closed with a running stitch. A superficial right anterior labial lac was closed with 4-0 Vicryl Rapide. Pt and baby doing well at that time.
[2019-08-27] MEDS ORDERED: Lactated Ringers 1000 ML Bag* 1,000 ML IV SCH (07:00)
[2019-08-27] MEDS ORDERED: Oxytocin in LR* 20 UNITS/1,000 ML BAG IVPB SCH (07:00)
[2019-08-27] MEDS ORDERED: Simethicone TAB* 80 MG TAB.CHEW PO SCH (08:30)
[2019-08-27] MEDS: Docusate CAP* 100 MG PO SCH ×3 (09:27→20:58)
[2019-08-27] MEDS: Labetalol TAB* 200 MG PO SCH ×2 (09:27→20:59)
[2019-08-28] MEDS: Ferrous Gluconate TAB* 324 MG TAB PO SCH ×2 (07:08→08:31)
[2019-08-28 07:39] LABS: ABS Basophils 0.1 10^3/ul (0-0.2); ABS Eosinophils 0.4 10^3/ul (0-0.6); ABS Monocytes 1.1 10^3/ul (0-0.8); ABS Neutrophils 8.7 10^3/ul (1.5-7.7); Eosinophil % 2.7 %; Hematocrit 26 % (35-47); Hemoglobin 8.9 g/dL (12.0-16.0); Lymphocyte % 22.8 %; Mean Corpuscular HGB Conc 34 g/dL (31-36); Mean Corpuscular Hemoglobin 28 pg (27-31); Mean Corpuscular Volume 81 fL (80-97); Mean Platelet Volume 7.1 fL (7.4-10.4); Platelet Count 312 10^3/uL (150-450); Red Blood Count 3.21 10^6 /uL (3.70-4.87); Red Cell Distribution Width 14 % (10-15); White Blood Count 13.2 10^3/uL (3.5-10.8)
[2019-08-28] MEDS: Labetalol TAB* 200 MG PO SCH (08:31)
[2019-08-28] MEDS: Docusate CAP* 100 MG PO SCH (08:31)
[2019-08-28 08:50] VITALS: BP 139/84
== END 2019-08-28 14:21 | disposition home or self-care (01) | DRG 560 ==
LOC: MCHOBOUT 07:55 → MCHOB 08:32
PROVIDERS: ADMIT Obstetrics & Gynecology; ATTEND Obstetrics & Gynecology
PROC: 4A1HXCZ Monitoring of Products of Conception, Cardiac Rate, External Approach (ICD-10-PCS; 2019-08-26)
PROC: 10907ZC Drainage of Amniotic Fluid, Therapeutic from Products of Conception, Via Natural or Artificial Opening (ICD-10-PCS; 2019-08-26)
PROC: 3E033VJ Introduction of Other Hormone into Peripheral Vein, Percutaneous Approach (ICD-10-PCS; 2019-08-26)
PROC: 10E0XZZ Delivery of Products of Conception, External Approach (ICD-10-PCS; principal; 2019-08-27)
PROC: 0UQGXZZ Repair Vagina, External Approach (ICD-10-PCS; 2019-08-27)
PROC: 0UQMXZZ Repair Vulva, External Approach (ICD-10-PCS; 2019-08-27)
DX: O13.4 Gestational [pregnancy-induced] hypertension without significant proteinuria, complicating childbirth (principal); Z37.0 Single live birth; O10.92 Unspecified pre-existing hypertension complicating childbirth; O99.824 Streptococcus B carrier state complicating childbirth; Z3A.37 37 weeks gestation of pregnancy; O71.4 Obstetric high vaginal laceration alone; O90.81 Anemia of the puerperium
CPT/HCPCS: 36415; 80053; 80307; 84550; 85025; 85610; 85730; 86850; 86900; 86901; A9270-GY; G0480; J2540